=== PATIENT | female | born 1945 | race Two or more races ===

== ENCOUNTER 2017-07-24 04:13 | Emergency (ER) | payer OTHER ==
[~2017-07-24] VITALS: Ht 160 cm; Wt 60.8 kg
--- NOTE | 2017-07-24 04:18 | NUR ---
PT A/OX4 BREATHING EFFORTLESSLY ON ROOM AIR, PT STATES SHE HAS BEEN FEELING LIKE HER BP IS HIGH AND SHE HAS BEEN FEELING DIZZY AND HAVING BODY CRAMPING X 2 DAYS, PT STATES SHE HAS BEEN FEELING VERY ANXIOUS X 2 DAYS S/P TAKING A MEDICINE FOR DEPRESSION. PT STATES SHE HAS BEEN DEPRESSED BECAUSE HER SON JUST HAD A STROKE, PT ON MONITOR, IN MD NICHOLAS AT BEDSIDE WILL CONTINUE TO MONITOR.
--- NOTE | 2017-07-24 04:35 | NUR ---
PT STATES SHE IS NOT ABLE TO URINATE AT THIS TIME, MD MADE AWARE WILL CONTINUE TO MONITOR.
--- NOTE | 2017-07-24 05:06 | NUR ---
URINE COLLECTED AND SENT TO LAB
[2017-07-24 05:42] LABS: APPEARANCE,URINE CLEAR (CLEAR); BILIRUBIN,URINE NEGATIVE (NEGATIVE); BLOOD, URINE NEGATIVE Ery/uL (NEGATIVE); COLOR,URINE YELLOW (YELLOW); KETONES,URINE NEGATIVE (NEGATIVE); LEUKOCYTE ESTERASE ,URINE 3+ (NEGATIVE); NITRITE, URINE NEGATIVE (NEGATIVE); PH,URINE 7.5 (5.0-8.0); PROTEIN,URINE NEGATIVE (NEGATIVE); UGLUCOSE NEGATIVE (NEGATIVE); UROBILINOGEN,URINE 0.2 EU/dL (0.2)
[2017-07-24 05:51] LABS: BACTERIA,URINE Few /HPF (None Seen); RBC,URINE 0-2 /HPF (0-2); SQUAMOUS EPITHELIAL CELL,UR Few /HPF (None Seen)
--- NOTE | 2017-07-24 06:10 | NUR ---
Patient discharged to home in stable condition. Written and verbal after care instructions given. Patient verbalizes understanding of instruction. PT CALLED HER SON AND STATES THE SON WILL PICK HER UP, PT WALKED OUT OF THE ER WITH A STEADY GAIT AND IS WAITING IN THE LOBBY FOR HER SON TO PICK HER UP
[2017-07-24 06:11] VITALS: BP 150/80
== END 2017-07-24 06:12 | disposition home or self-care (01) ==
LOC: ER 04:15
DX: F45.8 Other somatoform disorders (principal); F41.9 Anxiety disorder, unspecified; I10 Essential (primary) hypertension; F32.9 Major depressive disorder, single episode, unspecified
CPT/HCPCS: 81000-TC; 87086-TC; A4606; Z7610

== ENCOUNTER 2017-10-02 04:10 | Emergency (ER) | payer OTHER ==
[~2017-10-02] VITALS: Ht 149.9 cm; Wt 55.8 kg
--- NOTE | 2017-10-02 04:15 | NUR ---
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 PER EMS GAVE ASA 325, 1 NITRO SPRAY WITH RELIEF 2/10 PAIN. UPON ARRIVAL TO ER, PATEINT IS AAO4, NAD NOTED. VSS. NONDIAPHORETIC. GOWNED. PLACED ON CARDIAC AND VS MONITORING.
--- NOTE | 2017-10-02 04:16 | NUR ---
DR BELLE AT BEDSIDE TO EVALUATE PATIENT
--- NOTE | 2017-10-02 04:38 | NUR ---
XR AT BEDSIDE.
[2017-10-02] MEDS ORDERED: ALPRAZOLAM 0.25 MG TABLET ONE (04:42)
[2017-10-02 04:43] LABS: EOSINOPHILS % (AUTO) 0.5 % (0.0-6.0); HEMATOCRIT 44 % (33-45); HEMOGLOBIN 14.5 g/dL (11.5-14.8); LYMPHOCYTES # (AUTO) 1.4 /CMM (0.8-4.8); MEAN CORPUSCULAR HEMOGLOBIN 31 PG (26.0-33.0); MEAN CORPUSCULAR HGB CONC 33 g/dl (31.0-36.0); MEAN CORPUSCULAR VOLUME 94 fL (82-100); MONOCYTES # (AUTO) 0.2 /CMM (0.1-1.30); MONOCYTES % (AUTO) 1.8 % (2.0-12.0); NEUTROPHILS # (AUTO) 7.5 /CMM (1.8-8.9); NEUTROPHILS % (AUTO) 82.7 % (43.0-81.0); PLATELET COUNT (AUTO) 289 /CMM (150-450); RDW COEFFICIENT OF VARIATION 12.8 (11.5-15.0); RED BLOOD CELL COUNT(AUTO) 4.64 MIL/uL (4.0-5.2); WHITE BLOOD COUNT (AUTO) 9.1 K/uL (4.3-11.0)
[2017-10-02 04:51] LABS: CALCIUM, SERUM 10.2 mg/dL (8.5-10.1); CARBON DIOXIDE 26 mmol/L (21-32); CHLORIDE 109 mmol/L (98-107); CREATININE 0.9 mg/dL (0.6-1.3); GLUCOSE 114 mg/dL (74-106); POTASSIUM 3.7 mmol/L (3.5-5.1); SODIUM SERUM 145 mmol/L (136-145); UREA NITROGEN, BLOOD 5 mg/dL (7-18)
[2017-10-02 04:54] LABS: INR 0.96 (0.87-1.13)
[2017-10-02 04:59] LABS: TROPONIN I < 0.017 ng/mL (0.00-0.056)
[2017-10-02] MEDS ORDERED: ALPRAZOLAM 0.25 MG TABLET PO ONE (05:00)
[2017-10-02 05:03] LABS: B-TYPE NATRIURETIC PEPTIDE 52 PG/ML (0-125)
--- NOTE | 2017-10-02 05:47 | NUR ---
PATIENT REPORTS "FEELING BETTER." NAD NOTED. VSS. PATIENT AMBULATED TO BATHROOM WITH STEADY GAIT.
--- NOTE | 2017-10-02 06:52 | NUR ---
PATIENT IS SLEEPING COMFORTABLY AT THIS TIME. VSS.
[2017-10-02 08:39] VITALS: BP 107/64
== END 2017-10-02 08:53 | disposition home or self-care (01) ==
LOC: ER 04:11
DX: F41.9 Anxiety disorder, unspecified (principal); I10 Essential (primary) hypertension; F32.9 Major depressive disorder, single episode, unspecified
CPT/HCPCS: 36415; 71010-TC; 80048-TC; 83880; 84484-TC; 85025-TC; 85730-TC; A4606; Z7610